=== PATIENT | female | born 1960 | race Caucasian/White ===

== ENCOUNTER → 2020-04-03 | Outpatient (CLI) | payer BC ==
--- NOTE | 2020-04-03 11:15 | REP ---
INDICATION: Tobacco abuse and bronchitis.. COMPARISON: None TECHNIQUE: As per the protocol only lung window images were sent to the read station for interpretation. FINDINGS: There are 2 faintly visible 4 mm sized nodules in the right middle lobe. There are no additional abnormal nodules, masses, or opacities. The mediastinum and pulmonary rosalia are grossly within normal limits. The imaged upper abdomen and imaged osseous structures are grossly within normal limits. There are no pleural or pericardial effusions. IMPRESSION: There are 2 right middle lobe nodules as described above. According to the revised Fleischner society criteria these nodules represent category 3 lesions for which a six-month follow-up examination is recommended. <Electronically signed by Sacha Martel > 04/03/20 1111
== END ==
LOC: M RAD 10:13
PROVIDERS: ATTEND Internal Medicine Cardiovascular Disease
DX: Z12.2 Encounter for screening for malignant neoplasm of respiratory organs (principal); Z87.891 Personal history of nicotine dependence; J42 Unspecified chronic bronchitis; R91.8 Other nonspecific abnormal finding of lung field

== ENCOUNTER → 2025-01-04 | Outpatient (CLI) | payer BC | LOC: M SLEEP HO 11:02 | PROVIDERS: ATTEND Physician Assistant | DX: G47.33 Obstructive sleep apnea (adult) (pediatric) (principal) ==